=== PATIENT | female | born 1960 | race Two or more races ===

== ENCOUNTER 2023-01-06 22:32 | Emergency (ER) | payer OTHER ==
[~2023-01-06] VITALS: Ht 167.6 cm; Wt 81.8 kg
[2023-01-06 22:35] VITALS: BP 142/83; PULSE 66; RESP 18; TEMP 98.5; O2SAT 95
[2023-01-07] MEDS ORDERED: KETOROLAC TROMETH 30 MG/ML 1ML VIAL IM ONE (00:45)
[2023-01-07] MEDS ORDERED: TETANUS-DIPTH-ACEL PERTUSSIS 0.5ML SYR Tdap IM ONE (00:45)
[2023-01-07] MEDS ORDERED: IBUP-1455 PO (01:14)
[2023-01-07] MEDS ORDERED: CEPH500C PO (01:14)
== END 2023-01-07 01:22 | disposition home or self-care (01) ==
LOC: ER 22:32
DX: M79.605 Pain in left leg (principal); I10 Essential (primary) hypertension; F32.9 Major depressive disorder, single episode, unspecified; Z98.890 Other specified postprocedural states; Z79.1 Long term (current) use of non-steroidal anti-inflammatories (NSAID); Z79.899 Other long term (current) drug therapy
CPT/HCPCS: 73700; 93971; 96372; 99285; J1885

== ENCOUNTER 2024-02-13 03:58 | Emergency (ER) | payer OTHER ==
[~2024-02-13] VITALS: Ht 167.6 cm; Wt 84.6 kg
[~2024-02-13 03:58] MED LIST: CEPH500C PO; IBUP-1455 PO
--- NOTE | 2024-02-13 05:50 | DVH ---
Clinical History R/O FX Comparison None Technique: left hand 3 views Without Contrast DARWINYADI, [id number] Findings: Bones: No displaced fracture. Soft tissues: No swelling. No foreign body Joints: Visualized joints are within normal limits. Impression: 1. No acute fracture or dislocation. This report was electronically signed by Jerilyn Martell MD on 02/13/2024 5:48:34 AM.
[2024-02-13 06:50] VITALS: BP 147/73; PULSE 60; RESP 18; TEMP 97.9; O2SAT 97
--- NOTE | 2024-02-13 07:08 | ED.PDOC ---
History of Present Illness HPI Comments This is a 63-year-old female who comes in with chief complaint of left hand pain and some redness over the left 2nd digit joint. The patient states that the pain is about a 5/10. The patient denies any nausea, vomiting or diarrhea. There has been no other complaints at this time she states that she was picking up something yesterday and her hand seemed to then back. She now states that she is having increased pain over that area. Chief Complaint: Upper Extremity Time Seen by MD: 07:00 Primary Care Provider: LAWRENCE Call Notes: Nurses Notes, Medications, Allergies (No allergies to medications) Allergies: Coded Allergies: NO KNOWN ALLERGIES (Unverified , 11/14/15) Home Meds Active Scripts Cephalexin Monohydrate (Cephalexin) 500 Mg Cap, 500 MG PO Q6HR for 5 Days, #20 MG Prov:YOSHI VELASQUEZ MD 02/13/24 Tramadol Hcl (Tramadol Hcl) 50 Mg Tab, 50 MG PO Q8HP PRN for 5 Days, #15 TAB Prov:YOSHI VELASQUEZ MD 02/13/24 Cephalexin Monohydrate (Cephalexin) 500 Mg Cap, 1 CAP PO TID for 7 Days, #21 CAP 0 Refills Prov:DANICA ENGLE 01/07/23 Ibuprofen Micronized (Ibuprofen) 800 Mg Tab, 800 MG PO Q6HP PRN, #30 TAB 0 Refills Prov:DANICA ENGLE 01/07/23 Information Source: Patient Mode of Arrival: Ambulatory Severity: Mild Timing: Hours Duration: Since onset Prehospital treatment: None Location: Right hand redness over the right 2nd digit Past Medical History PAST MEDICAL HISTORY: CKF, Depression, High Lipids, HTN Surgical History: BTL Surgical History (Other): Right and left foot surgery 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 [employer] History Family History Family History: Family hx of HTN Social History Smoker: Non-Smoker Alcohol: Denies ETOH Use Drugs: Denies Drug Use Lives In: Home Constitutional: denies: chills, diaphoresis, fatigue, fever, malaise, sweats, weakness, others EENTM: denies: blurred vision, double vision, ear bleeding, ear discharge, ear drainage, ear pain, ear ringing, eye pain, eye redness, hearing loss, mouth pain, mouth swelling, nasal discharge, nose bleeding, nose congestion, nose pain, photophobia, tearing, throat pain, throat swelling, voice changes, others Respiratory: denies: cough, hemoptysis, orthopnea, SOB at rest, shortness of breath, SOB with excertion, stridor, wheezing, others Cardiovascular: denies: chest pain, dizzy spells, diaphoresis, Dyspnea on exertion, edema, irregular heart beat, left arm pain, lightheadedness, palpitations, PND, syncope, others Gastrointestinal: denies: abdomen distended, abdominal pain, blood streaked bowels, constipated, diarrhea, dysphagia, difficulty swallowing, hematemesis, melena, nausea, poor appetite, poor fluid intake, rectal bleeding, rectal pain, vomiting, others Genitourinary: denies: abnormal vagina bleeding, burning, dyspareunia, dysuria, flank pain, frequency, hematuria, incontinence, pain, , vagina discharge, urgency, others Neurological: denies: dizziness, fainting, headache, left sided numbness, left sided weakness, numbness, paresthesia, pre-existing deficit, right sided numbness, right sided weakness, seizure, speech problems, tingling, tremors, weakness, others Musculoskeletal: reports: others (Right hand tenderness over the 2nd MCP joint); denies: back pain, gout, joint pain, joint swelling, muscle pain, muscle stiffness, neck pain Integumetry: denies: bruises, change in color, change in hair/nails, dryness, laceration, lesions, lumps, rash, wounds, others Allergic/Immunocompromised: denies: Difficulty Healing, Frequent Infections, Hives, Itching, others Hematologic/Lymphatic: denies: anemia, blood clots, easy bleeding, easy bruising, swollen glands, others Endocrine: denies: excessive hunger, excessive sweating, excessive thirst, excessive urination, flushing, intolerance to cold, intolerance to heat, unexplained weight gain, unexplained weight loss, others Psychiatric: denies: anxiety, bipolar disorder, depression, hopeless, panic disorder, schizophrenia, sleepless, suicidal, others Physical Exam General Appearance: No Apparent Distress HEENT: Normal ENT Inspection, Pharynx Normal, TMs Normal Neck: Full Range of Motion, Non-Tender, Normal, Normal Inspection Respiratory: Chest Non-Tender, Lungs Clear, No Accessory Muscle Use, No R espiratory Distress, Normal Breath Sounds Cardiovascular: No Edema, No JVD, No Murmur, No Gallop, Normal Peripheral Pulses, Regular Rate/Rhythm Breast Exam: Deferred Gastrointestinal: No Organomegaly, Non Tender, No Pulsatile Mass, Normal Bowel Sounds, Soft Genitalia: Deferred Pelvic: Deferred Rectal: Deferred Extremities: No calf tenderness, Normal capillary refill, Normal inspection, Normal range of motion, Non-tender, No pedal edema Musculoskeletal : Location: Right Extremity Location: Hand Apperance: Tenderness: Mild, Other (Minimal redness to the area) Neurologic: Alert, microsoft exchange administrator II-XII nml as Tested, No Motor Deficits, Normal Affect, Normal Mood, No Sensory Deficits Cerebellar Function: Normal Reflexes: Normal Skin: Dry, Normal Color, Warm Lymphatic: No Adenopathy Was a procedure done? Was a procedure done?: No Differential Dx Considerations may include: Fracture, strain, contusion X-Ray, Labs, Meds, VS Vital Signs Date Time Temp Pulse Resp B/P (MAP) Pulse Ox O2 Delivery O2 Flow Rate FiO2 02/13/24 06:50 60 18 97 Room Air 02/13/24 06:50 97.9 60 18 147/73 (97) 97 97.9 02/13/24 04:20 97.5 51 14 148/75 (99) 97 Francisco wrap was placed to the right hand. The patient was given tramadol here in the emergency department's The patient was given a dose of Keflex The patient is being discharged and will follow up with the primary care doctor The patient will return to the emergency department's the condition worsens. Images Reviewed?: Images reviewed and evaluated by me Time of 1ST Reevaluation: 07:07 Reevaluation 1ST: Unchanged Patient Education/Counseling: Diagnosis, Treatment, Prognosis, Need For Follow Up Family Education/Counseling: No Family Present Departure 1 Departure Time of Disposition: 07:08 Impression: Primary Impression: Strain of right hand Qualified Codes: S66.911A - Strain of unspecified muscle, fascia and tendon at wrist and hand level, right hand, initial encounter Additional Impression: Cellulitis of right hand Disposition: 01 HOME / SELF CARE / HOMELESS Condition: Fair e-Prescriptions Cephalexin Monohydrate (Cephalexin) 500 Mg Cap 500 MG PO Q6HR for 5 Days, #20 MG Prov: YOSHI VELASQUEZ MD 02/13/24 Tramadol Hcl (Tramadol Hcl) 50 Mg Tab 50 MG PO Q8HP PRN for 5 Days, #15 TAB Prov: YOSHI VELASQUEZ MD 02/13/24 Discharged With: Self Critical Care Note Critical Care Time?: No Stability Stability form required: No Heart Score Heart Score: Heart Score Response (Comments) Value History N/A 0 EKG N/A 0 Age N/A 0 Risk Factors N/A 0 Troponin N/A 0 Total 0 YOSHI VELASQUEZ MD Feb 13, 2024 07:08
[2024-02-13] MEDS ORDERED: CEPH500C PO (07:10)
[2024-02-13] MEDS ORDERED: TRAM50TA2 PO (07:10)
[2024-02-13] MEDS: traMADol HCL 50 MG TAB PO ONE (07:38)
[2024-02-13] MEDS: CEPHALEXIN 250 MG CAP PO ONE (07:38)
[2024-02-14] MEDS ORDERED: PRED20TA2 PO (13:03)
[2024-02-14] MEDS ORDERED: HYDR-4798 PO (13:03)
== END 2024-02-13 07:55 | disposition home or self-care (01) ==
LOC: ER 03:58
DX: S66.812A Strain of other specified muscles, fascia and tendons at wrist and hand level, left hand, initial encounter (principal); L03.114 Cellulitis of left upper limb; I12.9 Hypertensive chronic kidney disease with stage 1 through stage 4 chronic kidney disease, or unspecified chronic kidney disease; N18.9 Chronic kidney disease, unspecified; E78.5 Hyperlipidemia, unspecified; F32.9 Major depressive disorder, single episode, unspecified; Z98.890 Other specified postprocedural states; Z79.899 Other long term (current) drug therapy; X58.XXXA Exposure to other specified factors, initial encounter; Y93.89 Activity, other specified; Y92.89 Other specified places as the place of occurrence of the external cause; Y99.8 Other external cause status
CPT/HCPCS: 73130

== ENCOUNTER 2024-02-14 09:07 | Emergency (ER) | payer OTHER ==
[~2024-02-14] VITALS: Ht 167.6 cm; Wt 83.2 kg
[~2024-02-14 09:07] MED LIST changes: +TRAM50TA2 PO
[2024-02-14] MEDS: HYDROcodone-ACET 10/325MG TAB PO ONE (11:12)
[2024-02-14 11:15] VITALS: BP 137/82; PULSE 95; RESP 17; TEMP 97.4; O2SAT 96
[2024-02-14 12:04] LABS: Basophils # (auto) 0 10 ^3/uL (0-0.2); Basophils % (auto) 0.1 % (0.0-2.0); Eosinophils # (auto) 0 10 ^3/uL (0-0.8); Eosinophils % (auto) 0.1 % (0.0-7.0); Hematocrit 41.6 % (36.0-46.0); Hemoglobin 14.3 g/dL (12.2-16.2); Lymphocytes # (auto) 1.4 10 ^3/uL (0.4-5.4); Lymphocytes % (auto) 9.8 % (10.0-50.0); Mean Corpuscular Hemoglobin 31.9 pg (28.0-32.0); Mean Corpuscular Hgb Conc. 34.4 g/dL (32.0-36.0); Mean Corpuscular Volume 92.7 fL (80.0-100.0); Monocytes % (auto) 6.7 % (0.0-12.0); Neutrophils # (auto) 12.1 10 ^3/uL (1.6-8.6); Neutrophils % (auto) 83.3 % (37.0-80.0); Platelet Count (auto) 326 10^3/uL (140-450); Red Blood Cells 4.49 10^6/uL (4.0-5.20); Red Cell Distribution Width 13.3 % (11.8-14.3); White Blood Cell 14.5 10^3/uL (4.4-10.8)
[2024-02-14 12:25] LABS: Alanine Aminotransferase 13 U/L (7-40); Albumin 4.6 g/dL (3.2-4.8); Alkaline Phosphatase 83 U/L (46-116); Anion Gap 7 (5-15); Aspartate Aminotransferase 15 U/L (13-40); BUN/Creatinine Ratio 9.9 (10.0-20.0); Blood Urea Nitrogen 12 mg/dL (9-23); Calcium 9.3 mg/dL (8.7-10.4); Carbon Dioxide 26 mmol/L (20-30); Chloride 102 mmol/L (98-107); Glucose 112 mg/dL (74-106); Potassium 3.6 mmol/L (3.5-5.1); Sodium 135 mmol/L (136-145); Uric Acid 9.2 mg/dL (3.1-7.8)
[2024-02-14 12:26] LABS: Total Protein 8.3 g/dL (5.7-8.2)
[2024-02-14 12:49] LABS: CRP High Sensitivity 1.14 mg/dL (<1.0)
[2024-02-14 12:51] LABS: Erythrocyte Sedimentation Rate 42 mm/hr (0-20)
[2024-02-14] MEDS ORDERED: PRED20TA2 PO (13:03)
[2024-02-14] MEDS ORDERED: HYDR-4798 PO (13:03)
[2024-02-14] MEDS: DexAMETHasone SOD PHOS 10MG/1ML VIAL INJ IM ONE (13:46)
== END 2024-02-14 14:23 | disposition home or self-care (01) ==
LOC: ER 09:07
DX: L03.114 Cellulitis of left upper limb (principal); E78.5 Hyperlipidemia, unspecified; I12.9 Hypertensive chronic kidney disease with stage 1 through stage 4 chronic kidney disease, or unspecified chronic kidney disease; N18.9 Chronic kidney disease, unspecified; Z98.51 Tubal ligation status
CPT/HCPCS: 36415; 73200; 80053; 83605; 84550; 85025; 85652; 86141; 96372; 99285; J1100

== ENCOUNTER 2024-05-23 23:48 | Emergency (ER) | payer OTHER ==
[~2024-05-23] VITALS: Ht 167.6 cm; Wt 81.5 kg
[~2024-05-23 23:48] MED LIST changes: +CIP500T PO; +HYDR-4798 PO; +PRED20TA2 PO; +TAMS-35 PO
--- NOTE | 2024-05-24 00:22 | ED.PDOC ---
General HPI Comments 63-year-old female presents to ER with complaints of left flank pain x4 days. Patent with past medical history significant for left-sided kidney stones states that she has been experiencing left flank pain with associated intermittent nausea x4 days. She rates her current pain a 10/10 to left flank with radiation towards the left upper quadrant of abdomen. Reports that she has been taking Advil along with Zofran for her symptoms without relief. Patient states that she does have an appointment to see a urologist but notes that the appointment is not until July 02. Patient presents to ER ambulatory on arrival, with steady gait, in mild distress. Denies fever, body aches, chills, vomiting, shor tness of breath, chest pain, changes in urination or any further symptoms/complaints Chief Complaint: Flank Pain Time Seen by MD: 00:07 Primary Care Provider: LAWRENCE Call notes: Nurses Notes, Medications, Allergies Allergies: Coded Allergies: Penicillins (Verified Allergy, Unknown, 05/17/24) Home Meds Active Scripts Ondansetron Odt 4MG Tab (ZOFRAN PO) 4 Mg Tb, 4 MG PO Q8HPRN, #14 TAB 0 Refills ODT TAB-DISSOLVE IN MOUTH, THEN SWALLOW Prov:KATHLEEN TIJERINA 05/24/24 Acetaminophen W/ Codeine (Tylenol W/Cod #3) 1 Tab Tb, 1 TAB PO Q6HPRN, #10 TAB 0 Refills Prov:KATHLEEN TIJERINA 05/24/24 Tamsulosin Hcl (Flomax) 0.4 Mg Cap, 1 CAP PO DAILY for 7 Days, #7 CAP 0 Refills Prov:KATHLEEN TIJERINA 05/24/24 Ciprofloxacin Hcl (Ciprofloxacin Hcl) 500 Mg Tab, 1 TAB PO BID for 7 Days, #14 TAB 0 Refills Prov:KATHLEEN TIJERINA 05/24/24 Ciprofloxacin Hydrochloride (Ciprofloxacin HCl) 500 Mg Tab, 500 MG PO BID, #28 TAB Prov:BELLA BOND MD 03/23/24 Hydrocodone-Acetaminophen (Hydrocodone Bitartrate/AC 10-325 mg) 1 Tab Tab, 1 TAB PO TID, #12 TAB Prov:TEJ FORD 03/23/24 Tamsulosin Hcl (Flomax) 0.4 Mg Cap, 1 CAP PO DAILY, #30 CAP Prov:TEJ FORD 03/23/24 Prednisone (Prednisone) 20 Mg Tab, 40 MG PO DAILY for 5 Days, #10 TAB Prov:RITU LUDWIG 02/14/24 Hydrocodone-Acetaminophen (Hydrocodone Bitartrate/AC 10-325 mg) 1 Tab Tab, 1 TAB PO Q6HPRN PRN, #10 TAB Prov:RITU LUDWIG 02/14/24 Cephalexin Monohydrate (Cephalexin) 500 Mg Cap, 500 MG PO Q6HR for 5 Days, #20 MG Prov:YOSHI VELASQUEZ MD 02/13/24 Tramadol Hcl (Tramadol Hcl) 50 Mg Tab, 50 MG PO Q8HP PRN for 5 Days, #15 TAB Prov:YOSHI VELASQUEZ MD 02/13/24 Cephalexin Monohydrate (Cephalexin) 500 Mg Cap, 1 CAP PO TID for 7 Days, #21 CAP 0 Refills Prov:DANICA ENGLE 01/07/23 Ibuprofen Micronized (Ibuprofen) 800 Mg Tab, 800 MG PO Q6HP PRN, #30 TAB 0 Refills Prov:DANICA ENGLE 01/07/23 Information Source: Patient Past Medical History PAST MEDICAL HISTORY: CKF, Depression, High Lipids, HTN, Kidney Stones (Left) Surgical History: BTL 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 Pertinent MANUFACTURING SALES REPRESENTATIVE History Family History Family History: Family hx of HTN Social History Smoker: Non-Smoker Alcohol: Denies ETOH Use Drugs: Denies Drug Use Lives In: Home Constitutional: denies: chills, diaphoresis, fatigue, fever, malaise, sweats, weakness, others EENTM: denies: blurred vision, double vision, ear bleeding, ear discharge, ear drainage, ear pain, ear ringing, eye pain, eye redness, hearing loss, mouth pain, mouth swelling, nasal discharge, nose bleeding, nose congestion, nose pain, photophobia, tearing, throat pain, throat swelling, voice changes, others Respiratory: denies: cough, hemoptysis, orthopnea, SOB at rest, shortness of breath, SOB with excertion, stridor, wheezing, others Cardiovascular: denies: chest pain, dizzy spells, diaphoresis, Dyspnea on exertion, edema, irregular heart beat, left arm pain, lightheadedness, palpitations, PND, syncope, others Gastrointestinal: reports: others (As stated in HPI) Genitourinary: reports: others (As stated in HPI) Neurological: denies: dizziness, fainting, headache, left sided numbness, left sided weakness, numbness, paresthesia, pre-existing deficit, right sided numbness, right sided weakness, seizure, speech problems, tingling, tremors, weakness, others Musculoskeletal: denies: back pain, gout, joint pain, joint swelling, muscle pain, muscle stiffness, neck pain, others Integumetry: denies: bruises, change in color, change in hair/nails, dryness, laceration, lesions, lumps, rash, wounds, others Allergic/Immunocompromised: denies: Difficulty Healing, Frequent Infections, Hives, Itching, others Hematologic/Lymphatic: denies: anemia, blood clots, easy bleeding, easy bruising, swollen glands, others Endocrine: denies: excessive hunger, excessive sweating, excessive thirst, excessive urination, flushing, intolerance to cold, intolerance to heat, unexplained weight gain, unexplained weight loss, others Psychiatric: denies: anxiety, bipolar disorder, depression, hopeless, panic disorder, schizophrenia, sleepless, suicidal, others Physical Exam General Appearance: Mild Distress (Due to left flank pain) HEENT: PERRL/EOMI Neck: Full Range of Motion, Non-Tender, Normal Respiratory: Chest Non-Tender, Lungs Clear, No Accessory Muscle Use, No Respiratory Distress, Normal Breath Sounds Cardiovascular: No Murmur, No Gallop, Regular Rate/Rhythm Breast Exam: Deferred Gastrointestinal: No Organomegaly, Non Tender (No TTP to abdomen appreciated), No Pulsatile Mass, Normal Bowel Sounds, Soft Genitalia: Deferred Pelvic: Deferred Rectal: Deferred Extremities: Normal capillary refill, Normal range of motion Musculoskeletal : Extremity Location: Back (TTP to left flank noted. No TTP to right flank noted. No CVA tenderness noted bilaterally. No skin changes noted. Steady gait appreciated) Neurologic: Alert, radiation oncology therapist II-XII nml as Tested, No Motor Deficits, No Sensory Deficits Cerebellar Function: Normal Reflexes: Normal Skin: Dry, Normal Color, Warm Peripheral Pulses: 2+ Radial (R), 2+ Radial (L), 2+ Brachial (R), 2+ Brachial (L) Lymphatic: No Adenopathy Was a procedure done? Was a procedure done?: No Sedation Sedation?: No Differential Diagnosis Kidney stone (Female): Pyelonephritis, Strain, Urinary obstruction Urinary Problem (Female): AAA X-Ray, Labs, Meds, VS Vital Signs Date Time Temp Pulse Resp B/P (MAP) Pulse Ox O2 Delivery O2 Flow Rate FiO2 05/24/24 01:57 98 Room Air 0 05/24/24 00:05 97.5 51 15 131/68 (89) 98 Lab Test 05/24/24 00:30 05/24/24 00:27 Range/Units Urine Color Light-yellow Yellow Urine Clarity Clear Clear Urine pH 5.5 5.0-9.0 Urine Specific [place] 1.020 1.001-1.035 Urine Protein Negative Negative Urine Ketones Negative Negative Urine Blood 1+ H Negative /uL Urine Nitrite Negative Negative Urine Bilirubin Negative Negative Urine Urobilinogen Normal Negative mg/dL Urine Leukocyte Esterase 2+ Negative /uL Urine RBC 14 0 - 4 /hpf Urine WBC 24 0 - 5 /hpf Urine Squamous Epithelial Cells Few <5 /hpf Urine Bacteria None seen None Seen /hpf Urine Hyaline Casts Few 0 - 2 /lpf Urine Mucus Few None Seen Urine Glucose Normal Normal mg/dL White Blood Count 10.0 4.4-10.8 10^3/uL Red Blood Count 4.17 4.0-5.20 10^6/uL Hemoglobin 13.0 12.2-16.2 g/dL Hematocrit 38.1 36.0-46.0 % Mean Corpuscular Volume 91.3 80.0-100.0 fL Mean Corpuscular Hemoglobin 31.2 28.0-32.0 pg Mean Corpuscular Hemoglobin Concent 34.2 32.0-36.0 g/dL Red Cell Distribution Width 13.4 11.8-14.3 % Platelet Count 297 140-450 10^3/uL Mean Platelet Volume 7.3 6.9-10.8 fL Neutrophils (%) (Auto) 65.7 37.0-80.0 % Lymphocytes (%) (Auto) 24.1 10.0-50.0 % Monocytes (%) (Auto) 8.0 0.0-12.0 % Eosinophils (%) (Auto) 1.9 0.0-7.0 % Basophils (%) (Auto) 0.3 0.0-2.0 % Neutrophils # (Auto) 6.5 1.6-8.6 10 ^3/uL Lymphocytes # (Auto) 2.4 0.4-5.4 10 ^3/uL Monocytes # (Auto) 0.8 0-1.3 10 ^3/uL Eosinophils # (Auto) 0.2 0-0.8 10 ^3/uL Basophils # (Auto) 0 0-0.2 10 ^3/uL Nucleated Red Blood Cells 0.0 % Sodium Level 140 136-145 mmol/L Potassium Level 3.8 3.5-5.1 mmol/L Chloride Level 105 98-107 mmol/L Carbon Dioxide Level 27 20-31 mmol/L Anion Gap 8 5-15 Blood Urea Nitrogen 22 9-23 mg/dL Creatinine 1.52 H 0.550-1.02 mg/dL Glomerular Filtration Rate Calc 39 >90 mL/min BUN/Creatinine Ratio 14.5 10.0-20.0 Serum Glucose 93 74-106 mg/dL Calcium Level 9.5 8.7-10.4 mg/dL Lipase 64 H 12-53 U/L Current Medications Medications (Trade) Dose Ordered Sig/Destiney Route Start Time Stop Time Status Last Admin Sodium Chloride 1,000 ml @ 1,000 mls/hr Q1H ONCE IV 05/24/24 00:15 05/24/24 01:14 DC 05/24/24 01:45 Ketorolac Tromethamine (Toradol Injection) 30 mg ONCE ONCE IV 05/24/24 00:15 05/24/24 00:16 DC 05/24/24 01:56 Ceftriaxone Sodium 50 ml @ 100 mls/hr ONCE ONCE IV 05/24/24 01:45 05/24/24 02:14 DC 05/24/24 01:56 PATIENT: YADI GRANADOSACCT: [id number] UNIT: [id number] : 1960 LOC: ER ROOM / BED: / AGE / SEX: 63 / F ADM STATUS: REG ER SERVICE ORDERING PHYSICIAN: KATHLEEN TIJERINA PROCEDURE(s): ABPL - CT AB PEL WO CON-NO ORAL OR IV REASON: left flank pain ORDER NUMBER(s): [id number], ACCESSION NUMBER(s): [id number] Exam: CT CT AB PEL WO CON-NO ORAL OR IV History: left flank pain Comparison Study: None available at time of dictation. Technique: Multidetector spiral CT of the abdomen was performed from lung bases to pubic symphysis. Imaging was performed without IV contrast. Axial, coronal and sagittal multiplanar reformats were obtained from the axial data set by the technologist. Radiation Dose : 1. Abdomen/Pelvis: CTDIvol 15 mGy, DLP 786 mGy*cm. Findings: Evaluation of solid organs is limited due to lack of intravenous contrast use. Lung Bases: No acute or significant lung base finding. Normal heart size. No pleural or pericardial effusion. Liver: The liver is normal in size. No focal lesions. Gallbladder and Biliary Tree: Unremarkable Spleen: Punctate calcifications. Pancreas: The pancreas is grossly normal in appearance. Adrenal Glands: Unremarkable Kidneys: Multiple 2 mm nonobstructing left renal stones. Bladder: Grossly unremarkable for degree of distention. Bowel: The stomach is grossly normal in appearance. Small bowel and colon are normal in caliber and distribution. The appendix is not visualized; however, no secondary findings of acute appendicitis identified. Ascites: Absent Lymphadenopathy: No mesenteric, retroperitoneal or periportal lymphadenopathy. Abdominal Wall and Mesentery: Unremarkable. Vasculature: The visualized abdominal aorta is normal in size and caliber. Evaluation of abdominal and pelvic vessels is limited due to lack of intravenous contrast. Pelvic Organs: Unremarkable Musculoskeletal: No aggressive focal bony lesions, acute fractures or dis location. IMPRESSION: No acute abdominal or pelvic findings. Multiple nonobstructing left renal stones measuring up to 2 mm. END IMPRESSION: ATED BY: AYIR LEON DO DICTATED DATE/TIME: 05/24/24136 SIGNED BY: YAIR LEON DO SIGNED DATE/TIME: 05/24/24136 CC: CBC reviewed-normal BMP reviewed-GFR 39, creatinine 1.52 Urinalysis reviewed-urine leukocyte esterase 2+, urine blood 1+ , urine nitrites negative Lipase reviewed -64 Hep-Lock IV ordered NS 1 L IV ordered NS 1 L IV ordered Toradol 30 mg IV ordered Flomax 0.5 mg PO ordered Rocephin 1 g IV ordered Last two previous ER charts were reviewed Patient reported improvement in symptoms, tolerating PO intake well and nontoxic appearing/in no distress prior to discharge Advised to drink plenty of fluids Advised to follow up with PCP and urologist in 1-2 days Patient verbalized understanding and agreeable with current plan of care Advised to return to ER immediately if symptoms worsen Images Reviewed?: Images reviewed and evaluated by me Time of 1ST Reevaluation: 00:20 Reevaluation 1ST: N/A Patient Education/Counseling: Diagnosis, Treatment, Prognosis, Need For Follow Up Family Education/Counseling: No Family Present Departure 1 Departure Time of Disposition: 01:42 Impression: Primary Impression: Left nephrolithiasis Additional Impression: UTI (urinary tract infection) Qualified Codes: N30.01 - Acute cystitis with hematuria Disposition: HOME / SELF CARE / HOMELESS Condition: Stable e-Prescriptions Ondansetron Odt 4MG Tab (ZOFRAN PO) 4 Mg Tb 4 MG PO Q8HPRN, #14 TAB 0 Refills ODT TAB-DISSOLVE IN MOUTH, THEN SWALLOW Prov: KATHLEEN TIJERINA 05/24/24 Acetaminophen W/ Codeine (Tylenol W/Cod #3) 1 Tab Tb 1 TAB PO Q6HPRN, #10 TAB 0 Refills Prov: KATHLEEN TIJERINA 05/24/24 Tamsulosin Hcl (Flomax) 0.4 Mg Cap 1 CAP PO DAILY for 7 Days, #7 CAP 0 Refills Prov: KATHLEEN TIJERINA 05/24/24 Ciprofloxacin Hcl (Ciprofloxacin Hcl) 500 Mg Tab 1 TAB PO BID for 7 Days, #14 TAB 0 Refills Prov: KATHLEEN TIJERINA 05/24/24 Discharged With: Self Critical Care Note Critical Care Time?: No Stability Stability form required: No Heart Score Heart Score: Heart Score Response (Comments) Value History N/A 0 EKG N/A 0 Age N/A 0 Risk Factors N/A 0 Troponin N/A 0 Total 0 KATHLEEN TIJERINA May 24, 2024 00:22
[2024-05-24 00:49] LABS: Urine Bacteria None Seen /hpf (None Seen)
[2024-05-24 00:52] LABS: Basophils # (auto) 0 10 ^3/uL (0-0.2); Basophils % (auto) 0.3 % (0.0-2.0); Eosinophils # (auto) 0.2 10 ^3/uL (0-0.8); Eosinophils % (auto) 1.9 % (0.0-7.0); Hematocrit 38.1 % (36.0-46.0); Lymphocytes # (auto) 2.4 10 ^3/uL (0.4-5.4); Lymphocytes % (auto) 24.1 % (10.0-50.0); Mean Corpuscular Hemoglobin 31.2 pg (28.0-32.0); Mean Corpuscular Hgb Conc. 34.2 g/dL (32.0-36.0); Mean Corpuscular Volume 91.3 fL (80.0-100.0); Monocytes # (auto) 0.8 10 ^3/uL (0-1.3); Neutrophils # (auto) 6.5 10 ^3/uL (1.6-8.6); Neutrophils % (auto) 65.7 % (37.0-80.0); Platelet Count (auto) 297 10^3/uL (140-450); Red Blood Cells 4.17 10^6/uL (4.0-5.20); Red Cell Distribution Width 13.4 % (11.8-14.3)
[2024-05-24 01:11] LABS: Chloride 105 mmol/L (98-107); Potassium 3.8 mmol/L (3.5-5.1); Sodium 140 mmol/L (136-145)
[2024-05-24 01:12] LABS: Anion Gap 8 (5-15); Carbon Dioxide 27 mmol/L (20-31)
[2024-05-24 01:13] LABS: Calcium 9.5 mg/dL (8.7-10.4)
[2024-05-24 01:17] LABS: Glucose 93 mg/dL (74-106)
[2024-05-24 01:18] LABS: BUN/Creatinine Ratio 14.5 (10.0-20.0); Blood Urea Nitrogen 22 mg/dL (9-23)
[2024-05-24 01:20] LABS: Lipase 64 U/L (12-53)
[2024-05-24 01:24] LABS: Urine Blood 1+ /uL (Negative); Urine Clarity Clear (Clear); Urine Color Light-Yellow (Yellow); Urine Hyaline Cast FEW /lpf (0 - 2); Urine Mucus FEW (None Seen); Urine Protein, UAD Negative (Negative); Urine Urobilinogen Normal (Negative); Urine WBC 24 /hpf (0 - 5); Urine pH 5.5 (5.0-9.0)
--- NOTE | 2024-05-24 01:39 | DVH ---
Exam: CT CT AB PEL WO CON-NO ORAL OR IV History: left flank pain Comparison Study: None available at time of dictation. Technique: Multidetector spiral CT of the abdomen was performed from lung bases to pubic symphysis. Imaging was performed without IV contrast. Axial, coronal and sagittal multiplanar reformats were ob tained from the axial data set by the technologist. Radiation Dose : 1. Abdomen/Pelvis: CTDIvol 15 mGy, DLP 786 mGy*cm. Findings: Evaluation of solid organs is limited due to lack of intravenous contrast use. Lung Bases: No acute or significant lung base finding. Normal heart size. No pleural or pericardial effusion. Liver: The liver is normal in size. No focal lesions. Gallbladder and Biliary Tree: Unremarkable Spleen: Punctate calcifications. Pancreas: The pancreas is grossly normal in appearance. Adrenal Glands: Unremarkable Kidneys: Multiple 2 mm nonobstructing left renal stones. Bladder: Grossly unremarkable for degree of distention. Bowel: The stomach is grossly normal in appearance. Small bowel and colon are normal in caliber and d istribution. The appendix is not visualized; however, no secondary findings of acute appendicitis id entified. Ascites: Absent Lymphadenopathy: No mesenteric, retroperitoneal or periportal lymphadenopathy. Abdominal Wall and Mesentery: Unremarkable. Vasculature: The visualized abdominal aorta is normal in size and caliber. Evaluation of abdominal a nd pelvic vessels is limited due to lack of intravenous contrast. Pelvic Organs: Unremarkable Musculoskeletal: No aggressive focal bony lesions, acute fractures or dislocation. IMPRESSION: No acute abdominal or pelvic findings. Multiple nonobstructing left renal stones measuring up to 2 mm . END IMPRESSION:
[2024-05-24] MEDS: SODIUM CHLORIDE 0.9% 1,000 ML IV ONE ×2 (01:45→02:25)
[2024-05-24] MEDS ORDERED: ZOFR4T PO (01:54)
[2024-05-24] MEDS ORDERED: TAMS-35 PO (01:54)
[2024-05-24] MEDS ORDERED: CIPR500T4 PO (01:54)
[2024-05-24] MEDS ORDERED: ACE3T PO (01:54)
[2024-05-24] MEDS: KETOROLAC TROMETH 30 MG/ML 1ML VIAL IV ONE (01:56)
[2024-05-24] MEDS: cefTRIAXone 1GM/50ML D5W 50 ML IV ONE (01:56)
[2024-05-24] MEDS: TAMSULOSIN HYDROCHLORIDE 0.4 MG CAP PO ONE (02:25)
[2024-05-24 03:30] VITALS: BP 149/88; PULSE 59; RESP 16; TEMP 97.7; O2SAT 99
== END 2024-05-24 04:02 | disposition home or self-care (01) ==
LOC: ER 23:48
DX: N20.0 Calculus of kidney (principal); N39.0 Urinary tract infection, site not specified; I12.9 Hypertensive chronic kidney disease with stage 1 through stage 4 chronic kidney disease, or unspecified chronic kidney disease; N18.9 Chronic kidney disease, unspecified; E78.5 Hyperlipidemia, unspecified; Z87.442 Personal history of urinary calculi; Z98.890 Other specified postprocedural states; Z88.0 Allergy status to penicillin; Z79.899 Other long term (current) drug therapy
CPT/HCPCS: 36415; 74176; 80048; 81001; 83690; 85025; 96361; 96365; 96375; 99285; J0696; J1885; J7030

== ENCOUNTER 2024-11-02 18:49 | Emergency (ER) | payer OTHER ==
[~2024-11-02] VITALS: Ht 167.6 cm; Wt 85.9 kg
[~2024-11-02 18:49] MED LIST changes: +ACE3T PO; +CIPR500T4 PO; +ZOFR4T PO
[2024-11-02 19:47] VITALS: BP 116/74; PULSE 58; RESP 18; TEMP 97.9; O2SAT 97
--- NOTE | 2024-11-02 20:03 | ED.PDOC ---
Back pain HPI HPI Comments PT CAME TO THE ER WITH CC OF RIGHT KNEE PAIN, PT STATES THAT SHE HAS A HX OF GOUT AND THAT IS HAS STARTED TO ACT UP LATELY. PT IS CURRENTLY A&OX4, RR EVEN AND REGULAR NO DISTRESS NOTED AT THIS TIME. PT DENIES N/V/D CP SOB. PT REPORTS 10/ PAIN IN THE RIGHT KNEE. DENIES NUMBNESS, WEAKNESS OR KNOWN INJURY Chief Complaint: Lower Extremity Time Seen by MD: 19:46 Primary Care Provider: LAWRENCE Call Notes: Nurses Notes, Medications, Allergies Allergies: Coded Allergies: Penicillins (Verified Allergy, Unknown, 05/17/24) Home Meds Active Scripts Prednisone (Prednisone) 20 Mg Tab, 40 MG PO DAILY for 5 Days, #10 TAB Prov:EDGAR HOLLIDAY 11/02/24 Ondansetron Odt 4MG Tab (ZOFRAN PO) 4 Mg Tb, 4 MG PO Q8HPRN, #14 TAB 0 Refills ODT TAB-DISSOLVE IN MOUTH, THEN SWALLOW Prov:KATHLEEN TIJERINA 05/24/24 Acetaminophen W/ Codeine (Tylenol W/Cod #3) 1 Tab Tb, 1 TAB PO Q6HPRN, #10 TAB 0 Refills Prov:KATHLEEN TIJERINA 05/24/24 Tamsulosin Hcl (Flomax) 0.4 Mg Cap, 1 CAP PO DAILY for 7 Days, #7 CAP 0 Refills Prov:KATHLEEN TIJERINA 05/24/24 Ciprofloxacin Hcl (Ciprofloxacin Hcl) 500 Mg Tab, 1 TAB PO BID for 7 Days, #14 TAB 0 Refills Prov:KATHLEEN TIJERINA 05/24/24 Ciprofloxacin Hydrochloride (Ciprofloxacin HCl) 500 Mg Tab, 500 MG PO BID, #28 TAB Prov:BELLA BOND MD 03/23/24 Hydrocodone-Acetaminophen (Hydrocodone Bitartrate/AC 10-325 mg) 1 Tab Tab, 1 TAB PO TID, #12 TAB Prov:TEJ FORD 03/23/24 Tamsulosin Hcl (Flomax) 0.4 Mg Cap, 1 CAP PO DAILY, #30 CAP Prov:TEJ FORD 03/23/24 Hydrocodone-Acetaminophen (Hydrocodone Bitartrate/AC 10-325 mg) 1 Tab Tab, 1 TAB PO Q6HPRN PRN, #10 TAB Prov:RITU LUDWIGO PAC 02/14/24 Cephalexin Monohydrate (Cephalexin) 500 Mg Cap, 500 MG PO Q6HR for 5 Days, #20 MG Prov:YOSHI VELASQUEZ MD 02/13/24 Tramadol Hcl (Tramadol Hcl) 50 Mg Tab, 50 MG PO Q8HP PRN for 5 Days, #15 TAB Prov:YOSHI VELASQUEZ MD 02/13/24 Cephalexin Monohydrate (Cephalexin) 500 Mg Cap, 1 CAP PO TID for 7 Days, #21 CAP 0 Refills Prov:DANICA ENGLE 01/07/23 Ibuprofen Micronized (Ibuprofen) 800 Mg Tab, 800 MG PO Q6HP PRN, #30 TAB 0 Refills Prov:DANICA ENGLE 01/07/23 Information Source: Patient Past Medical History PAST MEDICAL HISTORY: CKF, Depression, High Lipids, HTN, Kidney Stones Surgical History: BTL 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 Pertinent BRANCH ACCOUNT EXECUTIVE History Family History Family History: Family hx of HTN Social History Smoker: Non-Smoker Alcohol: Denies ETOH Use Drugs: Denies Drug Use Lives In: Home Constitutional: denies: chills, diaphoresis, fatigue, fever, malaise, sweats, weakness, others EENTM: denies: blurred vision, double vision, ear bleeding, ear discharge, ear drainage, ear pain, ear ringing, eye pain, eye redness, hearing loss, mouth pain, mouth swelling, nasal discharge, nose bleeding, nose congestion, nose pain, photophobia, tearing, throat pain, throat swelling, voice changes, others Respiratory: denies: cough, hemoptysis, orthopnea, SOB at rest, shortness of breath, SOB with excertion, stridor, wheezing, others Cardiovascular: denies: chest pain, dizzy spells, diaphoresis, Dyspnea on exertion, edema, irregular heart beat, left arm pain, lightheadedness, palpitations, PND, syncope, others Gastrointestinal: denies: abdomen distended, abdominal pain, blood streaked bowels, constipated, diarrhea, dysphagia, difficulty swallowing, hematemesis, melena, nausea, poor appetite, poor fluid intake, rectal bleeding, rectal pain, vomiting, others Genitourinary: denies: abnormal vagina bleeding, burning, dyspareunia, dysuria, flank pain, frequency, hematuria, incontinence, pain, , vagina discharge, urgency, others Neurological: denies: dizziness, fainting, headache, left sided numbness, left sided weakness, numbness, paresthesia, pre-existing deficit, right sided numbness, right sided weakness, seizure, speech problems, tingling, tremors, weakness, others Musculoskeletal: reports: joint pain, joint swelling; denies: back pain, gout, muscle pain, muscle stiffness, neck pain, others Integumetry: denies: bruises, change in color, change in hair/nails, dryness, laceration, lesions, lumps, rash, wounds, others Allergic/Immunocompromised: denies: Difficulty Healing, Frequent Infections, Hives, Itching, others Hematologic/Lymphatic: denies: anemia, blood clots, easy bleeding, easy bruising, swollen glands, others Endocrine: denies: excessive hunger, excessive sweating, excessive thirst, excessive urination, flushing, intolerance to cold, intolerance to heat, unexplained weight gain, unexplained weight loss, others Psychiatric: denies: anxiety, bipolar disorder, depression, hopeless, panic disorder, schizophrenia, sleepless, suicidal, others Physical Exam General Appearance: No Apparent Distress, Normal HEENT: Pharynx Normal Neck: Full Range of Motion, Non-Tender Respiratory: Lungs Clear, No Respiratory Distress, Normal Breath Sounds Cardiovascular: No Murmur, Normal Peripheral Pulses, Regular Rate/Rhythm Breast Exam: Deferred Gastrointestinal: Non Tender, Soft Genitalia: Deferred Pelvic: Deferred Rectal: Deferred Extremities: No calf tenderness, Normal capillary refill, Normal inspection, Normal range of motion, Non-tender, No pedal edema Musculoskeletal : Location: Right Extremity Location: Knee (MILD TO MODERATE EDEMA ABOUT KNEECAP NO BALLOTTEMENT NOTED NEGATIVE HANS'S NEGATIVE DRAWER EXAM. SENSORY MOTION INTACT POSITIVE POPLITEAL AND PEDAL PULSE ECCHYMOSIS, ABRASIONS, LESIONS OR LACERATIONS.) Apperance: Normal Neurologic: Alert, dog barber II-XII nml as Tested, No Motor Deficits, Normal Affect, Normal Mood, No Sensory Deficits Cerebellar Function: Normal Reflexes: Normal Skin: Dry, Normal Color, Warm Lymphatic: No Adenopathy Was a procedure done? Was a procedure done?: No Back Pain Differential Dx Differential Diagnosis: Fracture, Musculoskeletal Pain X-Ray, Labs, Meds, VS Vital Signs Date Time Temp Pulse Resp B/P (MAP) Pulse Ox O2 Delivery O2 Flow Rate FiO2 11/02/24 19:47 97.9 18 116/74 (88) 97 97.9 11/02/24 19:47 Room Air 11/02/24 19:47 97.9 58 18 116/74 (88) 97 97.9 Current Medications Medications (Trade) Dose Ordered Sig/Destiney Route Start Time Stop Time Status Last Admin Dexamethasone Sodium Phosphate (Decadron Injection) 10 mg ONCE ONCE IM 11/02/24 21:00 11/02/24 21:01 DC 11/02/24 21:07 Acetaminophen/ Hydrocodone Bitart ([place] 10/325MG Tab) 1 tab ONCE ONCE PO 11/02/24 21:00 11/02/24 21:01 DC 11/02/24 21:08 X-Ray, Labs, Meds, VS Comment RIGHT KNEE X-RAY SHOWS Suprapatellar joint effusion noted. No osseous abnormality identified with no fracture or dislocation. Joint spaces are normal. Small enthesophyte noted at quadriceps tendon insertion. PATIENT ALSO STATES SWELLING IN HER RIGHT ELBOW IS STARTED HISTORY OF GOUT, STATES PREDNISONE HELPS WITH HER ATTACKS. PATIENT GIVEN DECADRON 10 MG IM AND NORCO 10 MG P.O. REPORTS IMPROVEMENT IN PAIN AND FUNCTION REQUESTING DISCHARGE AT THIS TIME. SCRIPT AND REFILLED HER PREDNISONE ON FILE 40 MG ONCE DAILY X5 DAYS. ADVISED ON SIDE EFFECTS IN THE TAKE MEDICATIONS PRESCRIBED. REST ELEVATE AND ICE. FOLLOW UP WITH HER PCP IN 2-3 DAYS NECESSARY. RETURN PRECAUTIONS GIVEN PATIENT INDICATES UNDERSTANDING AND AGREES WITH DISCHARGE PLAN OF CARE. Time of 1ST Reevaluation: 19:00 Reevaluation 1ST: Unchanged Time of 2ND Reevaluation: 20:51 Reevaluation 2ND: Improved Patient Education/Counseling: Diagnosis, Treatment, Prognosis, Need For Follow Up Family Education/Counseling: No Family Present Departure 1 Departure Time of Disposition: 20:51 Impression: Primary Impression: Gout attack Qualified Codes: M10.9 - Gout, unspecified Disposition: HOME / SELF CARE / HOMELESS Condition: Stable e-Prescriptions Prednisone (Prednisone) 20 Mg Tab 40 MG PO DAILY for 5 Days, #10 TAB Prov: EDGAR HOLLIDAY 11/02/24 Discharged With: Self Critical Care Note Critical Care Time?: No Stability Stability form required: No EDGAR HOLLIDAY November 02, 2024 20:03
--- NOTE | 2024-11-02 20:45 | DVH ---
CLINICAL INDICATION: PAIN AND SWELLING TECHNIQUE: XY R KNEE 3V XRAY Comparison: None FINDINGS: Suprapatellar joint effusion noted. No osseous abnormality identified with no fracture or dislocation . Joint spaces are normal. Small enthesophyte noted at quadriceps tendon insertion. IMPRESSION: Joint effusion. No fracture or dislocation.
[2024-11-02] MEDS ORDERED: PRED20TA2 PO (20:56)
[2024-11-02] MEDS: DexAMETHasone SOD PHOS 10MG/1ML VIAL INJ IM ONE (21:07)
[2024-11-02] MEDS: HYDROcodone-ACET 10/325MG TAB PO ONE (21:08)
== END 2024-11-02 21:56 | disposition home or self-care (01) ==
LOC: ER 18:49
DX: M10.9 Gout, unspecified (principal); I10 Essential (primary) hypertension; Z79.52 Long term (current) use of systemic steroids; Z88.0 Allergy status to penicillin; Z98.51 Tubal ligation status; Z87.442 Personal history of urinary calculi
CPT/HCPCS: 73562; 96372; 99283; J1100